=== PATIENT | female | born 1975 | race African-American/Black ===

== ENCOUNTER 2019-12-16 09:34 | Emergency (ER) | payer MEDICAID ==
[~2019-12-16] VITALS: Ht 160 cm; Wt 64.0 kg
[2019-12-16] MEDS ORDERED: PREN-183 PO (09:51)
[2019-12-16] MEDS ORDERED: DEXT 5%/0.45% NACL KCL 20MEQ/L 1,000 ML IV ONE (10:26)
[2019-12-16 10:40] LABS: HEMATOCRIT. 42.4 % (36.0-48.0); HEMOGLOBIN. 14.4 g/dL (12.0-16.0); MEAN CORPUSCULAR HEMOGLOBIN 32.2 pg (28.0-32.0); MEAN CORPUSCULAR VOLUME 94.7 fL (81.0-99.0); MEAN PLATELET VOLUME 8.7 fl (7.4-10.4); PLATELET 215 x1000/uL (130-400); RED BLOOD CELL COUNT 4.48 mill/uL (4.2-5.4); RED CELL DISTRIBUTION WIDTH 13.8 % (11.6-14.6)
[2019-12-16 10:48] LABS: *AMPHETAMINES SCREEN URINE NEGATIVE (NEGATIVE); *BARBITURATES SCREEN URINE NEGATIVE (NEGATIVE); *BENZODIAZEPINES SCREEN URINE NEGATIVE (NEGATIVE); *COCAINE SCREEN URINE NEGATIVE (NEGATIVE)
[2019-12-16 10:48] LABS: INR 0.9
[2019-12-16 10:49] LABS: CANNABINOID URINE SCREEN NEGATIVE (NEGATIVE); METHADONE URINE SCREEN NEGATIVE (NEGATIVE); OPIATES URINE SCREEN NEGATIVE (NEGATIVE); PHENCYCLIDINE URINE SCREEN NEGATIVE (NEGATIVE)
[2019-12-16 10:50] LABS: CHLORIDE 107 mEq/L (98-107)
[2019-12-16 11:01] LABS: HCG SCREEN NEGATIVE
[2019-12-16 11:45] LABS: ATYPICAL LYMPHOCYTES 1; PLATELET ESTIMATE NORMAL
[2019-12-16 15:05] VITALS: BP 160/91
== END 2019-12-16 15:40 | disposition home or self-care (01) ==
LOC: ER 09:34
DX: H53.8 Other visual disturbances (principal); H26.9 Unspecified cataract; Z98.890 Other specified postprocedural states; Z90.49 Acquired absence of other specified parts of digestive tract
CPT/HCPCS: 36415; 80053; 80305; 81025; 82962; 84703; 85025; 96365; 96366; 99285

== ENCOUNTER 2020-02-03 09:12 | Day surgery (SDC) | payer MEDICAID ==
[~2020-02-03] VITALS: Ht 165.1 cm; Wt 61.2 kg
[~2020-02-03 09:12] MED LIST: BALANCED SALT IRRIG SOLN COMB1 500ML OP ONE; CYCLOPENTOLATE HCL 1% OPHTH DROPS 2ML LEFTEYE SCH; LACTATED RINGERS 1,000 ML IV SCH; PHENYLEPHRINE HCL 10% OPHTH DROPS 5ML LEFTEYE SCH; PREN-183 PO; TROPICAMIDE 1% OPHTH DROPS 15ML LEFTEYE SCH
[2020-02-03] MEDS ORDERED: HYALURONATE SODIUM 10 MG/ML 0.55ML SYRINGE IO ONE ×4 (09:58→11:12)
[2020-02-03 10:08] LABS: UCG SCREEN NEGATIVE
[2020-02-03] MEDS ORDERED: MIDAZOLAM HCL 2 MG/2 ML VIAL ONE (10:26)
[2020-02-03] MEDS ORDERED: PROPOFOL 200MG/20ML VIAL IV ONE (10:26)
[2020-02-03] MEDS ORDERED: FENTANYL CITRATE/PF 50MCG/ML 2ML VIAL ONE (10:26)
[2020-02-03] MEDS ORDERED: TRYPAN BLUE 0.5 ML DISP.SYRIN IO ONE (11:04)
[2020-02-03] MEDS ORDERED: TETRACAINE 0.5% OPHTH DROPS 4ML ONE (11:19)
[2020-02-03] MEDS ORDERED: LIDOCAINE HCL/PF 2% 20 MG/ML 10ML VIAL ONE (11:19)
[2020-02-03] MEDS ORDERED: BUPIVACAINE HCL/PF 0.75% (7.5MG/ML) 10ML ONE (11:19)
[2020-02-03] MEDS ORDERED: CIPROFLOXACIN 0.3% OPHTH SOLN 2.5ML ONE (11:19)
[2020-02-03] MEDS ORDERED: BALANCED SALT IRRIG SOLN 15ML ONE (11:19)
[2020-02-03] MEDS ORDERED: LIDOCAINE HCL 2%/EPINEPHRINE 1:100,000 20 ML VIAL INFIL ONE (11:19)
[2020-02-03] MEDS ORDERED: ACETYLCHOLINE CHLORIDE INTRAOCULAR SOLUTION 1:100 ELECTROLYTE DILUENT IO ONE (11:19)
[2020-02-03] MEDS ORDERED: PREDNISOLONE ACETATE 1% OPHTH DROPS 5ML ONE (11:19)
[2020-02-03] MEDS ORDERED: DEXAMETHASONE 4MG/ML 1ML VIAL ONE (11:21)
[2020-02-03] MEDS ORDERED: GLYCOPYRROLATE 0.2 MG/ML 2ML VIAL IV PRN (11:45)
[2020-02-03] MEDS ORDERED: ONDANSETRON HCL 4MG/2ML INJ IV SCH (11:45)
== END 2020-02-03 13:50 | disposition home or self-care (01) ==
LOC: OR 09:12
PROVIDERS: ATTEND Ophthalmology
DX: H25.89 Other age-related cataract (principal); N30.00 Acute cystitis without hematuria; I10 Essential (primary) hypertension; Z79.899 Other long term (current) drug therapy; Z98.890 Other specified postprocedural states; Z90.49 Acquired absence of other specified parts of digestive tract
CPT/HCPCS: 66984; 81025; J1100; J2250; J2704; J3010; J3490; Q9957; V2632

== ENCOUNTER → 2021-04-29 | Day surgery (SDC) | payer MEDICAID ==
[~2021-04-29] VITALS: Ht 161.3 cm; Wt 63.5 kg
[~2021-04-29] MED LIST changes: +ACETYLCHOLINE CHLORIDE INTRAOCULAR SOLUTION 1:100 ELECTROLYTE DILUENT IO ONE; +BALANCED SALT IRRIG SOLN 15ML ONE; +BALANCED SALT IRRIG SOLN COMB1 500ML OP NR; +BALANCED SALT IRRIG SOLN COMB2 500ML OP ONE; +BUPIVACAINE HCL/PF 0.75% (7.5MG/ML) 10ML ONE; +CEFAZOLIN SODIUM 1000MG/VIAL ONE; +CIPROFLOXACIN 0.3% OPHTH SOLN 2.5ML ONE; -CYCLOPENTOLATE HCL 1% OPHTH DROPS 2ML LEFTEYE SCH; +CYCLOPENTOLATE HCL 1% OPHTH DROPS 2ML RIGHTEYE ONE; +EPINEPHRINE 1:1000 1 MG/ML AMP ONE; +FENTANYL CITRATE/PF 50MCG/ML 2ML VIAL ONE; +GLYCOPYRROLATE 0.2 MG/ML 2ML VIAL ONE; +HYALURONATE SODIUM 10 MG/ML 0.55ML SYRINGE IO ONE; +HYDROMORPHONE HCL/PF 2MG/ML CPJ IV PRN; +LABETALOL 5MG/ML SYR 20 MG/4 ML SYRINGE IV PRN; +LABETALOL HCL 5MG/ML VIAL 20ML IV ONE; +LIDOCAINE HCL/PF 2% 20 MG/ML 10ML VIAL ONE; +MEPERIDINE HCL/PF 25MG/ML CPJ IV PRN; +METOCLOPRAMIDE HCL 10MG/2ML VIAL ONE; +MIDAZOLAM HCL 2 MG/2 ML VIAL ONE; +NEO/POLYMYX B SULF/DEXAMETH OPHTH OINT 3.5GM ONE; +NEOSTIGMINE METHYLSULFATE 1MG/ML 10 ML VIAL ONE; +ONDANSETRON HCL 4MG/2ML INJ IV PRN; +ONDANSETRON HCL 4MG/2ML INJ ONE; +PHENYLEPHRINE HCL 10 MG/ML 1ML (IV VIAL) IV ONE; -PHENYLEPHRINE HCL 10% OPHTH DROPS 5ML LEFTEYE SCH; +PHENYLEPHRINE HCL 10% OPHTH DROPS 5ML ONE; +PHENYLEPHRINE HCL 10% OPHTH DROPS 5ML RIGHTEYE ONE; +PREDNISOLONE ACETATE 1% OPHTH DROPS 5ML ONE; +PROPOFOL 200MG/20ML VIAL IV ONE; +ROCURONIUM BROMIDE 10MG/ML VIAL 5ML IV ONE; +SODIUM CHLORIDE 0.9% 10ML VIAL ONE; +SUCCINYLCHOLINE CHLORIDE 200MG/10ML IV ONE; +TETRACAINE 0.5% OPHTH DROPS 4ML ONE; +TRIAMCINOLONE ACETONIDE 40MG/ML 1ML VIAL ONE; -TROPICAMIDE 1% OPHTH DROPS 15ML LEFTEYE SCH; +TROPICAMIDE 1% OPHTH DROPS 15ML ONE; +TROPICAMIDE 1% OPHTH DROPS 15ML RIGHTEYE ONE; +TRYPAN BLUE 0.5 ML DISP.SYRIN IO ONE
[2021-04-29 16:43] LABS: HCG SCREEN NEGATIVE
[2021-04-29 17:48] VITALS: BP 147/87
== END | disposition home or self-care (01) ==
LOC: OR 14:11
PROVIDERS: ATTEND Ophthalmology
DX: H21.41 Pupillary membranes, right eye (principal); H25.89 Other age-related cataract; H40.89 Other specified glaucoma; Z79.899 Other long term (current) drug therapy; Z98.890 Other specified postprocedural states; Z20.822 Contact with and (suspected) exposure to COVID-19
CPT/HCPCS: 66982; 67005; 84703; 87426; J0330; J0690; J1170; J2250; J2405; J2704; J2710; J2765; J3010; J3490; Q9957; V2630; J2370; J3301

== ENCOUNTER 2023-01-18 19:46 | Emergency (ER) | payer MEDICAID, OTHER ==
[~2023-01-18] VITALS: Ht 162.6 cm; Wt 105.0 kg
[2023-01-18] MEDS ORDERED: AMLODIPINE 2.5MG TABLET PO ONE (20:00)
[2023-01-18 20:17] LABS: BASOPHILS % 0.9 % (0.0-2.0); EOSINOPHILS % 2.2 % (0.0-5.0); HEMATOCRIT. 39.4 % (36.0-48.0); HEMOGLOBIN. 13.1 g/dL (12.0-16.0); LYMPHOCYTES % 36.2 % (20.0-50.0); MEAN CORPUSCULAR HEMOGLOBIN 31.6 pg (28.0-32.0); MEAN CORPUSCULAR VOLUME 94.9 fL (81.0-99.0); MEAN PLATELET VOLUME 8.2 fl (7.4-10.4); MONOCYTES % 8.9 % (2.0-8.0); NEUTROPHILS % 51.8 % (40.0-76.0); PLATELET 224 x1000/uL (130-400); RED BLOOD CELL COUNT 4.15 mill/uL (4.2-5.4); RED CELL DISTRIBUTION WIDTH 13.3 % (11.6-14.6)
[2023-01-18 20:28] LABS: CHLORIDE 109 mEq/L (98-107)
[2023-01-18 20:36] LABS: ETHANOL BLOOD < 10 mg/dL (-10)
[2023-01-18] MEDS ORDERED: AMLO5TAB4 MT (21:12)
[2023-01-18] MEDS ORDERED: AMLODIPINE 5MG TABLET PO ONE (21:15)
[2023-01-18 21:27] VITALS: BP 211/127
== END 2023-01-18 21:35 | disposition home or self-care (01) ==
LOC: ER 19:46
DX: I16.0 Hypertensive urgency (principal); I10 Essential (primary) hypertension; Z87.19 Personal history of other diseases of the digestive system; Z90.49 Acquired absence of other specified parts of digestive tract
CPT/HCPCS: 36415; 80053; 80320; 85025; 99283; G0480